=== PATIENT | female | born 1960 | race Caucasian/White ===

== ENCOUNTER 2022-05-18 13:14 | Emergency (ER) | payer OTHER, SELFPAY ==
[2022-05-18 14:02] VITALS: BP 144/88; PULSE 76; RESP 16; TEMP 36.9; O2SAT 98; BMI 26.6
--- NOTE | 2022-05-18 14:09 | CRLHL7_ITS ---
For Patients: As a result of the Cures Act, medical imaging exams and procedure reports are released immediately into your electronic medical record. You may view this report before your referring provider. If you have questions, please contact your health care provider. INDICATION: 6 weeks s/p left knee surgery. increased calf swelling/pain COMPARISON: None. TECHNIQUE: A compression venous ultrasound exam was performed of the left lower extremity using salvador-scale imaging, color Doppler and spectral Doppler analysis. FINDINGS: Sonographic imaging of the left lower extremity demonstrates normal compressibility and color Doppler venous blood flow within the common femoral vein, deep femoral vein, and the proximal greater saphenous vein. Within the thigh, the femoral vein is patent and compressible. At a lower level, the popliteal and posterior tibial veins also show normal compressibility and color Doppler venous blood flow. Limited imaging of the contralateral groin demonstrates a normal spectral waveform and color Doppler venous blood flow within the right common femoral vein. Curvilinear complex fluid within the soft tissues of the left medial knee measuring 7 millimeters in thickness and up to 7 cm in length. IMPRESSION: No evidence of deep vein thrombosis within the left lower extremity. Resolving blood products within the posteromedial soft tissues. Dictated by Gaston Muñoz MD @ 05/18/2022 3:12:52 PM (Electronically Signed)
--- NOTE | 2022-05-18 15:29 | ED.GENADULT ---
HPI - General Adult General Time Seen by Provider: 15:28 Date Seen: 05/18/22 Chief complaint: Extremity Pain/Injury, Lower Stated complaint: Possible blood clot left leg Time Seen by Provider: 05/18/22 13:21 Source: patient Mode of arrival: ambulatory Limitations: no limitations History of Present Illness HPI narrative: Patient is a 62 white female had left knee meniscal repair about [address] Cox 10. The patient was at PT today and noted some swelling in her calf. She thinks she might walk more over the 16 of May weekend. She is scheduled to go on a boating excursion next week. Apparently she has not been on any limitations. PT was concerned about a blood clot and she was sent to the ER. Our nurses wisely ordered a left lower extremity ultrasound which is negative by radiology's read. Patient has had no cellulitic features has had no fevers chills no weakness in the leg. She has been recovering well she was in a brace for a good period of time as he did a tacked down meniscal repair. Related Data Home Medications Medication Instructions Recorded Confirmed No Known Home Medications 05/18/22 05/18/22 Allergies Allergy/AdvReac Type Severity Reaction Status Date / Time No Known Drug Allergies Allergy Verified 05/18/22 14:05 Review of Systems Status of ROS: Reports: 6 or more systems reviewed and unremarkable except as noted in History and below Exam Narrative: Exam Narrative: Patient's left calf shows no marked swelling, knee shows limited range of motion of full flexion extension, but no redness warmth erythema AV the calf or the knee. Distal CMS is intact. Const: Vital Signs, click to edit/add: Vital Signs - 24 hr 05/18/22 14:02 Temperature 98.4 F Pulse Rate [Pulse Oximeter] 76 Respiratory Rate 16 Blood Pressure [Ri ght Upper Arm] 144/88 H Pulse Oximetry 98 Course Vital Signs Vital signs: Initial Vital Signs Temperature 98.4 F 05/18/22 14:02 Temperature Source Temporal Artery Scan 05/18/22 14:02 Pulse Rate 76 05/18/22 14:02 Respiratory Rate 16 05/18/22 14:02 Blood Pressure 144/88 H 05/18/22 14:02 Blood Pressure Mean 106 05/18/22 14:02 Blood Pressure Position Sitting 05/18/22 14:02 Pulse Oximetry 98 05/18/22 14:02 Oxygen Delivery Method 05/18/22 14:02 Vital Signs Temperature 98.4 F 05/18/22 14:02 Pulse Rate 76 05/18/22 14:02 Respiratory Rate 16 05/18/22 14:02 Blood Pressure 144/88 H 05/18/22 14:02 Pulse Oximetry 98 05/18/22 14:02 Temperature 98.4 F 05/18/22 14:02 Pulse Rate 76 05/18/22 14:02 Respiratory Rate 16 05/18/22 14:02 Blood Pressure 144/88 H 05/18/22 14:02 Pulse Oximetry 98 05/18/22 14:02 Medical Decision Making MDM Narrative Medical decision making narrative: The patient is knee exam is pretty normal postoperatively, no areas of redness or warmth, calf and leg exam show no evidence of DVT on ultrasound. It does not appear to be cellulitis. The patient has follow-up with Dr. Cox in within the next week to 10 days. Advil and ice to the area at this time. May continue PT Discharge Plan Discharge Clinical Impression: Leg swelling Patient Disposition: Home, Self-Care Condition: Stable Additional Instructions: Limit weight-bearing, Advil, ice, update Dr. Cox than within the week Activity Level: Activity as Tolerated Discharge Diet: Regular Prescriptions: No Action No Known Home Medications 0RF Follow Up/Referrals: Merry Madera MD [Primary Care Provider] - Stand Alone Forms: [facility] Info Instructions
== END 2022-05-18 15:56 | disposition home or self-care (01) ==
LOC: ED 15:49
PROVIDERS: Emergency Provider Family Medicine; PCP Family Medicine
DX: R22.42 Localized swelling, mass and lump, left lower limb (principal)
CPT/HCPCS: 93971; 97110; 99283

== ENCOUNTER 2022-06-08 12:30 | Outpatient (RCR) | payer OTHER, SELFPAY | END 2022-06-08 14:21 | disposition home or self-care (01) | PROVIDERS: PCP Family Medicine; Visit Provider Orthopaedic Surgery Sports Medicine | DX: R26.9 Unspecified abnormalities of gait and mobility (principal); M25.562 Pain in left knee; Z51.89 Encounter for other specified aftercare | CPT/HCPCS: 97110; 97140 ==

== ENCOUNTER 2024-02-05 09:33 | Emergency (ER) | payer OTHER, SELFPAY ==
[2024-02-05] VITALS (36 sets, daily range): BP systolic 117–167; BP diastolic 73–92; PULSE 50–60; RESP 18–20; TEMP 36; O2SAT 94–100; BMI 27.1
--- NOTE | 2024-02-05 09:56 | ED_ITS ---
HPI - General Adult General Date Seen: 02/05/24 Chief complaint: Neuro Symptoms/Altered Deficit Stated complaint: confusion Time Seen by Provider: 02/05/24 09:55 History of Present Illness HPI narrative: 63-year-old female with a past medical history of sleep apnea, ADHD, hypersomnolence, SI joint pain and low back problems, allergic rhinitis, previous knee meniscus repair, coronavirus fall 2022. She presents to the ER this morning with her for evaluation of abrupt onset of confusion and amnesia. She has been healthy and well lately. No recent illnesses. She does note that she has a history of sleep apnea and wears a jaw thrust device for that. She notes that for the past week she has had a few palpitations when falling asleep. She notes that she has had palpitations at some point in the past and has had a workup done (through the [facility] possibly?) That did not show any significant arrhythmia. She says had her monitoring analyst showed something but she can not remember what it was. She is not sure if it was PVCs or some other acronym. She was normal last night. She notes that she ate dinner with some so he sought (which she does not normally eat) so she feels little bit bloated this morning. She also had pne 5 mg THC beverage last night. She says she is trying not drink alcohol anymore. She went to bed feeling normally. She slept normally. She woke up at about 7:00 a.m. this morning. She notes that her got up at about 630 and she stayed in bed to do were dull and things on her phone for a bit. She had breakfast and then was trying to get to her workup early this morning. She started doing a workout in her basement, as she normally does, around 745. She was doing a weight and cardio circuit with whole body exercises and weights. She recalls that she did S set of 8 exercises called ?Maneaters? and then was going into a super set of other exercises. She can not remember what the other section exercise or supposed to be. At some point during the Super set she just started if your really confused and no eye she was in the basement so she went upstairs to find her . He noticed that she seemed a little confused. No other definite neurologic symptoms that he notice. No slurred speech. No seizure activity. No definite focal numbness or weakness. Gait was steady. As far as we know she has no known head injury. No other symptoms. No fever. No cough. No nausea or vomiting. Bowel movements normal. Urination normal. No chest pain. No palpitations today but she has had a few palpitations, especially when going to bed, for the past week. Symptoms started in her basement which leads to consideration of carbon monoxide exposure. However they have of thermal heat and do not have a gas burning furnace. They do have a gas burning stove, which is located up stairs. She does not have a history of hypertension, dyslipidemia, or diabetes. Related Data Home Medications Medication Instructions Recorded Confirmed No Known Home Medications 05/18/22 06/17/22 Allergies Allergy/AdvReac Type Severity Reaction Status Date / Time No Known Drug Allergies Allergy Verified 02/05/24 11:09 [facility] Surgical History (Updated 06/17/22 @ 09:48 by Christie Campos) History of arthroscopy of left knee (03/28/22) ?Z98.890 - Other specified postprocedural states (ICD-10) Family History (Updated 06/14/22 @ 09:36 by Lelia Hart ~ [facility], [facility]) Mother Osteoarthritis Social History (Updated 06/17/22 @ 09:43 by Lelia Hart ~ [facility], [facility]) Smoking Status: Never smoker Do you use any of these nicotine containing products: None Second hand tobacco smoke exposure: No Non-prescribed substance use: marijuana (any form) Exam Narrative: Exam Narrative: Constitutional: Appears well-developed and well-nourished. Alert. Conversant. Non toxic. HENT: Head: Atraumatic. Nose: Nose normal. Mouth/Throat: Oral mucosa is clear and moist. no trismus. Pharynx normal. Tonsils symmetric. No tonsillar enlargement, erythema, or exudate. Eyes: Conjunctivae normal. EOM normal. Pupils equal, round, and reactive to light. No scleral icterus. Neck: Normal range of motion. Neck supple. No tracheal deviation present. No JVD Cardiovascular: Normal rate, regular rhythm. No gallop. No friction rub. No murmur heard. Symmetric radial artery pulses Pulmonary/Chest: Effort normal. No stridor. No respiratory distress. No wheezes. No rales. No rhonchi . No tenderness. Abdominal: Soft. No distension. No mass. No tenderness. No rebound. No guarding. Musculoskeletal: RUE: Normal range of motion. No tenderness. No deformity LUE: Normal range of motion. No tenderness. No deformity RLE: Normal range of motion. No edema. No tenderness. No deformity LLE: Normal range of motion. No edema. No tenderness. No deformity Neurological: Mental status normal. Attention normal. Alert and oriented x3. GCS 15. Memory seem somewhat impaired. She did cannot remember the day of the month but she knows there is 1 whole week left in January. Speech fluent. Cognition normal. She can spell DL RO W properly and rapidly. Cranial Nerves intact II-XII except I did not formally test gag or visual acuity. EOMI. Palate elevates symmetrically and tongue protrudes in the midline. Strength: 5/5 trapezius on the right and left 5/5 deltoid on the right and left 5/5 biceps on the right and left 5/5 triceps on the right and left 5/5 medical secretary receptionist on the right and left 5/5 thumb opposition on the right and le ft 5/5 finger abduction on the right and le ft 5/5 hip flexors (L3) on the right and le ft 5/5 quadriceps (L4) on the right and lef t 5/5 tibialis anterior on the right and l eft 5/5 EHL (L5) on the right and left 5/5 gastrocnemius (S1) on the right and left 5/5 hamstring on the right and left Sensation intact to light touch in both upper extremities (C4-T1) Sensation intact to light touch in Both lower extremities (L4-S1). Finger to nose and coordination normal. Gait normal. Romberg normal. Skin: Skin is warm and dry. No rash noted. No pallor. Normal capillary refill. Psychiatric: Normal mood. Normal affect. She is polite and smiling. She interacts well with her . He seems attentive but calm. Const: Vital Signs, click to edit/add: Vital Signs - 24 hr 02/05/24 09:36 02/05/24 11:26 02/05/24 11:30 Temperature 96.8 F L Pulse Rate 56 L 57 L Pulse Rate [Right Pulse Oximeter] 58 L Respiratory Rate 18 Blood Pressure Blood Pressure [Ri ght Upper Arm] 167/90 H Pulse Oximetry 99 98 98 Oxygen Delivery Me thod Room Air 02/05/24 11:32 02/05/24 11:45 02/05/24 12:00 Temperature Pulse Rate 57 L 56 L 53 L Pulse Rate [Right Pulse Oximeter] Respiratory Rate Blood Pressure 136/88 Blood Pressure [Ri ght Upper Arm] Pulse Oximetry 97 97 96 Oxygen Delivery Me thod 02/05/24 12:02 02/05/24 12:15 02/05/24 12:30 Temperature Pulse Rate 53 L 59 L 53 L Pulse Rate [Right Pulse Oximeter] Respiratory Rate Blood Pressure 145/87 H Blood Pressure [Ri ght Upper Arm] Pulse Oximetry 99 97 98 Oxygen Delivery Me thod 02/05/24 12:32 02/05/24 12:34 02/05/24 12:45 Temperature Pulse Rate 57 L 57 L Pulse Rate [Right Pulse Oximeter] 58 L Respiratory Rate 20 Blood Pressure 154/92 H Blood Pressure [Ri ght Upper Arm] 154/92 H Pulse Oximetry 98 98 98 Oxygen Delivery Me thod Room Air 02/05/24 13:00 02/05/24 13:02 02/05/24 13:15 Temperature Pulse Rate 51 L 57 L 60 Pulse Rate [Right Pulse Oximeter] Respiratory Rate Blood Pressure 132/87 Blood Pressure [Ri ght Upper Arm] Pulse Oximetry 98 99 97 Oxygen Delivery Me thod 02/05/24 13:30 02/05/24 13:32 02/05/24 13:45 Temperature Pulse Rate 55 L 55 L 55 L Pulse Rate [Right Pulse Oximeter] Respiratory Rate Blood Pressure 134/80 Blood Pressure [Ri ght Upper Arm] Pulse Oximetry 97 97 96 Oxygen Delivery Me thod 02/05/24 14:00 02/05/24 14:01 02/05/24 14:45 Temperature Pulse Rate 54 L 54 L 53 L Pulse Rate [Right Pulse Oximeter] Respiratory Rate Blood Pressure 130/84 Blood Pressure [Ri ght Upper Arm] Pulse Oximetry 96 98 99 Oxygen Delivery Me thod 02/05/24 15:00 02/05/24 15:02 02/05/24 15:03 Temperature Pulse Rate 60 58 L 59 L Pulse Rate [Right Pulse Oximeter] Respiratory Rate Blood Pressure 130/73 Blood Pressure [Ri ght Upper Arm] Pulse Oximetry 97 100 99 Oxygen Delivery Me thod 02/05/24 15:15 02/05/24 15:30 02/05/24 15:32 Temperature Pulse Rate 56 L 59 L 60 Pulse Rate [Right Pulse Oximeter] Respiratory Rate Blood Pressure 117/77 Blood Pressure [Ri ght Upper Arm] Pulse Oximetry 96 96 98 Oxygen Delivery Me thod 02/05/24 15:45 02/05/24 16:53 Temperature Pulse Rate 57 L 58 L Pulse Rate [Right Pulse Oximeter] Respiratory Rate Blood Pressure Blood Pressure [Ri ght Upper Arm] Pulse Oximetry 99 94 Oxygen Delivery Me thod Course Course ED Course: Recheck-doing a work meeting on her phone. Feels like her memory is getting better. Still no other deficit. Reevaluation(s) Reevaluation #1: Recheck-discussed with Stroke Neurology. They agree with plan to get CT/CTA. If that is normal proceed with MRI. Reevaluation #2: Recheck-patient feels like her memory is back to normal. She is still can not remember the events that happened this morning but otherwise remembers been normal for the rest the day. Reevaluation #3: Recheck-brain MRI shows a 3 mm abnormality in the left hippocampus that could be ischemia versus transient global amnesia. Discussed with the Stroke Neurology from Dr. Henry , because Dr. Yan is now off shift. Dr. Berumen and I reviewed the patient's presentation, vital signs, EKG, lab workup, CT findings, and MRI findings. He feels that this MRI finding would be pathognomonic for TGA. No further workup is needed. Patient is safe to discharge pain. Recommends outpatient follow-up. Vital Signs Vital signs: Initial Vital Signs Temperature 96.8 F L 02/05/24 09:36 Temperature Source Temporal Artery Scan 02/05/24 09:36 Pulse Rate 58 L 02/05/24 09:36 Respiratory Rate 18 02/05/24 09:36 Blood Pressure 167/90 H 02/05/24 09:36 Blood Pressure Mean 115 H 02/05/24 09:36 Blood Pressure Position Sitting 02/05/24 09:36 Pulse Oximetry 99 02/05/24 09:36 Oxygen Delivery Method Room Air 02/05/24 09:36 Vital Signs Temperature 96.8 F L 02/05/24 09:36 Pulse Rate 58 L 02/05/24 09:36 Respiratory Rate 18 02/05/24 09:36 Blood Pressure 167/90 H 02/05/24 09:36 Pulse Oximetry 99 02/05/24 09:36 Oxygen Delivery Method Room Air 02/05/24 09:36 Temperature 96.8 F L 02/05/24 09:36 Pulse Rate 58 L 02/05/24 16:53 Respiratory Rate 20 02/05/24 12:34 Blood Pressure 117/77 02/05/24 15:32 Pulse Oximetry 94 02/05/24 16:53 Oxygen Delivery Method Room Air 02/05/24 12:34 Medications Administered Medications: Discontinued Medications Generic Name Dose Route Start Last Admin Trade Name Freq PRN Reason Stop Dose Admin Sodium Chloride 500 mls @ 500 mls/hr 02/05/24 10:18 02/05/24 12:24 0.9 % Sodium Chloride 500 Ml IV 02/05/24 11:17 Infused .Q1H ONE Infusion Medical Decision Making MDM Narrative Medical decision making narrative: 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 Symptoms started this morning while she was doing a strenuous workout in her basement at home. No other focal neurologic deficits such as facial droop or any unilateral symptoms. Differential is broad including atypical seizure, TIA, stroke, TGA, metabolic disturbance, encephalitis, carbon monoxide exposure from her basement, among others. We did do a workup. Labs and carboxyhemoglobin are reassuring. EKG shows sinus bradycardia. No arrhythmia or AFib. Stat noncontrast head CT is normal. No evidence for intracranial bleeding or mass effect. CT angiogram of her head neck is normal. No flows limiting stenosis. No aneurysm. No dissection. Consultation through the [facility] [place] [place] [facility] team. Discussed with Dr. Yan. She would recommend getting an MRI of the patient's brain with and what without contrast to look for possible strokes or other abnormalities. MRI was delayed for several hours here in the ER because of the busy day in Radiology. Ultimately imaging was obtained and does show a 3 mm abnormality in the left hippocampus. Radiologic differential for this would include TGA versus ischemia. Discussed again with Stroke Neurology. Dr. Yan was off service so I discussed with Dr. Berumen. They feel the patient's symptoms and MRI findings would be highly suggestive for TGA. They suggest no further workup for stroke as needed. Patient can be safely discharged for outpatient primary care follow-up Discussed with the patient and her . They are agreeable with the plan. Incidentally her blood pressure readings have been slightly higher than her normal baseline while she is here in the ER. Suspect this is likely due to the stress of being in the ER. She will follow-up with her primary care provider for blood pressure recheck. She is actually due for a physical coming up soon and will also have her cholesterol checked. Discussed with the patient that typically the course with TGA would be benign and self-limited. If she has any recurrent symptoms or develops any other neurologic symptoms, she should return to the ER immediately for re-evaluation. Lab Data Labs: Lab Results 02/05/24 Range/Units 10:46 WBC 5.35 (4.50-11.00) K/uL RBC 4.64 (4.00-5.20) m/uL Hgb 13.6 (12.0-16.0) gm/dL Hct 41.7 (33.0-51.0) % MCV 90 (80-100) fL MCH 29 (26-34) pg MCHC 33 (32-36) gm/dL RDW Coeff of Bert 11.5 (11.5-15.5) % Plt Count 254 (140-440) K/uL Neut % (Auto) 63.5 (42.0-72.0) % Lymph % (Auto) 26.4 (20-44) % [place] % (Auto) 5.4 (0.0-11.0) % Eos % (Auto) 3.4 (0.0-7.0) % Baso % (Auto) 1.1 (0.0-3.0) % Neut # (Auto) 3.40 (1.7-7.0) K/uL Lymph # (Auto) 1.41 (0.90-2.90) K/uL [place] # (Auto) 0.30 (0.00-0.90) K/UL Eos # (Auto) 0.18 (0.00-0.50) K/uL Baso # (Auto) 0.06 (0.00-0.30) K/uL Abs Immat Gran (auto) 0.01 (0.00-0.30) K/uL Imm/Tot Granulo (auto) 0.2 % Carboxyhemoglobin 2.6 (0.0-5.0) % Sodium 137 (135-149) mmol/L Potassium 4.0 (3.6-5.1) mmol/L Chloride 103 (96-114) mmol/L Carbon Dioxide 26 (20-32) mmol/L Anion Gap 8 (7-15) mEq/L BUN 15 (7-30) mg/dL Creatinine 0.7 (0.5-1.5) mg/dL Estimated Creat Clear 46.73 Estimated GFR 98 ml/min Glucose 104 (60-115) mg/dL Lactate 1.7 (0.5-1.9) mmol/L Calcium 9.4 (8.4-10.6) mg/dL Troponin I 0.02 (0.01-0.04) ng/mL TSH 1.290 (0.270-4.200) uIU/mL POC Glucose 111 (60-115) mg/dl Imaging Data CT scan - head: Attestation: I have reviewed the pertinent imaging results. Radiologist's impression: IMPRESSION: Normal head CT. CTA head: Attestation: I have reviewed the pertinent imaging results. Radiologist's impression: CTA NECK IMPRESSION: Patent cervical arterial vasculature without hemodynamically significant luminal stenosis. CTA Head: Attestation: I have reviewed the pertinent imaging results. Radiologist's impression: IMPRESSION: No intracranial proximal large vessel occlusion, flow-limiting luminal stenosis, or cerebral aneurysm. MRI brain: Attestation: I have reviewed the pertinent imaging results. Radiologist's impression: Impression: 1. There is a 3 mm focus of diffusion restriction in the posterior left hippocampal formation that may represent transient global amnesia versus ischemia. 2. No hydrocephalus, mass effect or intracranial hemorrhage. 3. Few small foci of T2 prolongation in the subcortical white matter are nonspe cific but may represent sequela of migraine headaches or early chronic small vessel disease. 4. Incidental 6 mm pineal gland cyst. ECG Data Attestation: I personally reviewed and interpreted this ECG as follows: Interpretation: Sinus bradycardia. Rate 54. [place] 180 QRS axis low voltage QRS. Normal axis. No pathologic Q-waves. ST segment/T wave: No ST segment elevation or depression. QTc: 362 Discharge Plan Discharge Clinical Impression: Amnesia, global, transient Patient Disposition: Home, Self-Care Condition: Stable Instructions: Transient Global Amnesia (ED) Additional Instructions: As we discussed, please return to the ER right away if you have any worsening of her memory or developed any a neurologic symptoms such as slurred speech, facial droop, numbness or weakness in her arms or legs, dizziness, or if you have any other concerns. Please follow-up with your regular doctor for recheck to recheck your blood pressure and cholesterol within the next 1-2 weeks. Prescriptions: No Action No Known Home Medications Follow Up/Referrals: Merry Madera MD [Primary Care Provider] - Stand Alone Forms: [employer] Info Instructions
--- NOTE | 2024-02-05 10:18 | CT_ITS ---
Patient: GLENNY JORDAN Facility:?[facility] Patient ID:?[id number] Site Patient ID:?[id number]. Site :?[id number] Study:?CT-Head WITHOUT TIER 2 STOKE-02/05/2024 11:06:12 AM Ordering Physician:RADHA Final Report: INDICATION: Abrupt confusion with amnesia and headache COMPARISON: None. TECHNIQUE: CT of the head without contrast. Multiplanar reformats are included. FINDINGS: No intracranial hemorrhage. No acute or subacute cortically based infarct. Normal appearance of the white matter.Delete that No mass or mass effect Normal ventricles. No skull fractures. No worrisome focal bone lesion. IMPRESSION: Normal head CT. Please note that all CT scans at this facility use dose modulation, iterative reconstruction, and/or weight-based dosing when appropriate to reduce radiation dose to as low as reasonably achievable. Dictated by Rachelle Guerrero MD @ 02/05/2024 11:17:49 AM ----- ADDENDUM ----- Report confirmed as received by Dr. Yan at 11:22 a.m. on 02/05/2024. Dictated by Rachelle Guerrero MD @ Feb 05 2024 11:23AM Signed by:?Rachelle Guerrero MD @02/05/2024 11:17:49 AM (Electronic Signature)
--- NOTE | 2024-02-05 10:18 | CT_ITS ---
Patient: GLENNY JORDAN Facility:?[facility] Patient ID:?[id number] Site Patient ID:?[id number]. Site :?1960 Study:?CT-Head Angio W/ 95CC ISOVUE 370 TIER 2 [facility]-02/05/2024 11:08:52 AM Ordering Physician:RADHA Final Report: CLINICAL HISTORY: Confusion; amnesia; headache. TECHNIQUE: Standard helical CT image acquisition through the head following the administration of intravenous contrast was performed. 3D and MIP reconstructions were performed at a separate workstation and permanently archived. COMPARISON: None available. FINDINGS: No intracranial proximal large vessel occlusion or flow-limiting luminal stenosis. No evidence of cerebral aneurysm. No findings to suggest an arterial-venous shunting lesion. The major dural venous sinuses and deep venous system are patent. IMPRESSION: No intracranial proximal large vessel occlusion, flow-limiting luminal stenosis, or cerebral aneurysm. Please note that all CT scans at this facility use dose modulation, iterative reconstruction, and/or weight-based dosing when appropriate to reduce radiation dose to as low as reasonably achievable. Dictated by Vish Catherine MD @ 02/05/2024 11:33:13 AM Signed by:?Vish Catherine MD @02/05/2024 11:33:13 AM (Electronic Signature)
--- NOTE | 2024-02-05 10:18 | CT_ITS ---
Patient: GLENNY JORDAN Facility:?[facility] Patient ID:?[id number] Site Patient ID:?[id number]. Site :?1960 Study:?CT-Neck Angio W/ 95CC ISOVUE 370 TIER 2 [facility] [place]-02/05/2024 11:08:11 AM Ordering Physician:RADHA Final Report: CLINICAL HISTORY: Confusion; amnesia; headache. TECHNIQUE: Standard helical CT image acquisition through the neck was performed after intravenous contrast bolus enhancement. 3D and MIP reconstructions were performed at a separate workstation and permanently archived. COMPARISON: None available. FINDINGS: The origins of the great vessels from the aortic arch are patent. The common carotid arteries are patent. No significant luminal stenoses of the proximal ICAs by NASCET criteria. The more distal cervical segments of the ICAs are patent. The origins and cervical segments of the vertebral arteries are patent. IMPRESSION: Patent cervical arterial vasculature without hemodynamically significant luminal stenosis. Please note that all CT scans at this facility use dose modulation, iterative reconstruction, and/or weight-based dosing when appropriate to reduce radiation dose to as low as reasonably achievable. Dictated by Vish Catherine MD @ 02/05/2024 11:29:31 AM Signed by:?Vish Catherine MD @02/05/2024 11:29:31 AM (Electronic Signature)
[2024-02-05 11:00] LABS: Carboxyhemoglobin* 2.6 % (0.0-5.0)
[2024-02-05 11:02] LABS: Lactate* 1.7 mmol/L (0.5-1.9)
[2024-02-05 11:06] LABS: Basophils Absolute Auto 0.06 K/uL (0.00-0.30); Basophils Percent Auto 1.1 % (0.0-3.0); Eosinophils Absolute Auto 0.18 K/uL (0.00-0.50); Eosinophils Percent Auto 3.4 % (0.0-7.0); Hematocrit 41.7 % (33.0-51.0); Hemoglobin* 13.6 gm/dL (12.0-16.0); Immature Granulocytes Abs Auto 0.01 K/uL (0.00-0.30); Immature Granulocytes Pct Auto 0.2 %; Lymphocytes Absolute Auto 1.41 K/uL (0.90-2.90); Lymphocytes Percent Auto 26.4 % (20-44); Mean Corpuscular HGB Conc 33 gm/dL (32-36); Mean Corpuscular Hemoglobin 29 pg (26-34); Mean Corpuscular Volume 90 fL (80-100); Monocytes Percent Auto 5.4 % (0.0-11.0); Neutrophils Percent Auto 63.5 % (42.0-72.0); Platelet Count* 254 K/uL (140-440); RDW Coefficient of Variation % 11.5 % (11.5-15.5); Red Blood Count 4.64 m/uL (4.00-5.20); White Blood Count* 5.35 K/uL (4.50-11.00)
[2024-02-05 11:16] LABS: Slide Review Reflex No
[2024-02-05 11:23] LABS: Chloride* 103 mmol/L (96-114); Sodium* 137 mmol/L (135-149)
[2024-02-05 11:26] LABS: Anion Gap 8 mEq/L (7-15); Blood Urea Nitrogen* 15 mg/dL (7-30); Carbon Dioxide* 26 mmol/L (20-32); Creatinine* 0.7 mg/dL (0.5-1.5); Est. Creatinine Clearance* 46.73; Estimated Glomerular Filt Rate 98 ml/min; Glucose* 104 mg/dL (60-115)
[2024-02-05 11:27] LABS: Calcium* 9.4 mg/dL (8.4-10.6)
[2024-02-05 11:40] LABS: Glucose, Point-of-Care* 111 mg/dl (60-115)
[2024-02-05] MEDS: 0.9 % SODIUM CHLORIDE 500 ML 500 ML IV (11:40)
[2024-02-05 11:47] LABS: Troponin I* 0.02 ng/mL (0.01-0.04)
--- NOTE | 2024-02-05 12:20 | MR_ITS ---
Patient: GLENNY JORDAN Facility:?[facility] Patient ID:?[id number] Site Patient ID:?[id number]. Site :?1960 Study:?MRI-Head WO/W DOTAREM 13ML-02/05/2024 4:49:23 PM Ordering Physician:RADHA Final Report: Indication: Amnesia, acute confusion Technique: Noncontrast sagittal T1, axial FLAIR, T2 turbo spine echo, and diffusion weighted images. Supplemental post contrast T1 weighted axial and coronal sequences are provided after administration of 13 mL gadolinium-based IV contrast. Comparison: CT 02/05/2024 Findings: The ventricles, sulci and gyri are normal size, shape and contour for age. The midline structures are centrally located with no evidence of shift. There are no suspicious intra or extra-axial fluid collections. A 3 mm focus of diffusion restriction in the posterior left hippocampal formation does not demonstrate mass effect or associated FLAIR signal hyperintensity (series 3, image 35). The pituitary gland, optic chiasm, and cerebellar tonsils are unremarkable. Incidental 6 mm pineal gland cyst. Few foci of T2 prolongation in the subcortical white matter of the frontal lobes are nonspecific. No pathologic susceptibility artifacts. Expected flow voids in the cavernous carotids and basilar artery. No abnormal contrast enhancement involving the brain parenchyma, meninges, calvarium or skull base. Rightward deviation of the nasal septum. 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 Impression: 1. There is a 3 mm focus of diffusion restriction in the posterior left hippocampal formation that may represent transient global amnesia versus ischemia. 2. No hydrocephalus, mass effect or intracranial hemorrhage. 3. Few small foci of T2 prolongation in the subcortical white matter are nonspecific but may represent sequela of migraine headaches or early chronic small vessel disease. 4. Incidental 6 mm pineal gland cyst. Dictated by Gaston Cordova MD @ 02/05/2024 5:01:37 PM Signed by:?Gaston Cordova MD @02/05/2024 5:01:37 PM (Electronic Signature)
== END 2024-02-05 18:03 | disposition home or self-care (01) ==
PROVIDERS: Emergency Provider Emergency Medicine; PCP Family Medicine
DX: G45.4 Transient global amnesia (principal)
CPT/HCPCS: 36415; 70450; 70496; 70498; 70553; 80048; 82375; 82947; 83605; 84443; 84484; 85025; 93005; 99284; 99285; G0427; A9575; J7030; Q9967